=== PATIENT | male | born 1940 | race Caucasian/White ===

== ENCOUNTER 2022-12-14 09:41 | Emergency (ER) | payer MEDICARE, SELFPAY ==
[2022-12-14 10:04] VITALS: BP 204/86; PULSE 77; RESP 16; TEMP 36.3; O2SAT 96; BMI 28.3
--- NOTE | 2022-12-14 10:58 | ED_ITS ---
HPI - General Adult General: Chief complaint: Neuro Symptoms/Deficit Stated complaint: Ringing in ears Time Seen by Provider: 12/14/22 10:31 Source: patient and family Mode of arrival: ambulatory Limitations: no limitations History of Present Illness: Patient is a very nice 82-year-old male who presents to ED today along with his son for concerns of an abnormal sound/humming that he describes inside of his head. Patient states he initially began noticing this sounds a few weeks ago but states over the past week it has gotten significantly worse to the point where it keeps him up at night. He tori cribes the sound as more of a hum and references to sounds of jet airplanes going above his head. No description of ringing. Patient does wear bilateral hearing aids but has so for many years and states he has good follow-up with these. Patient has not started any new medications prior to sensation beginning. He was seen by his PCP who thought it might be secondary to blood pressure as his blood pressure was elevated in their office. He states they adjusted his blood pressure medications but this has not made a difference. Patient denies headache, lightheadedness, dizziness, visual changes. Denies pulsatile tinnitus. 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) and tinnitus; Denies: throat pain, odynophagia, ear or mastoid pain, ear discharge, disequilibrium, nasal discharge, nasal congestion, post nasal drip or sinus pain Card: Denies: chest pain Resp: Denies: dyspnea GI: Denies: abdominal pain Musc: Denies: neck pain, back pain, extremity pain or joint pain Skin/Breast: Denies: rash Neuro: Denies: headache(s), numbness in extremities, weakness in extremities, sensory changes, lack of coordination, difficulty walking, frequent falls, dizziness, vertigo, confusion, behavioral changes, Slurred speech present or difficulty communicating thoughts Physical Exam Const: COMMON NORMALS: no acute distress, average body habitus, patient oriented x3, no limitations, healthy appearing, alert and well nourished GENERAL APPEARANCE: cooperative ORIENTATION/CONSCIOUSNESS: Yes awake, Yes oriented to person, Yes oriented to place and Yes oriented to time HENMT: COMMON NORMALS: normocephalic, atraumatic, hearing grossly normal bilaterally, external ears normal, EAC's normal, TM's normal bilaterally, Normal external nose present, Normal nasal mucous membranes and turbinates present, moist oral mucous membranes and oropharynx normal HEAD & SCALP: normal to inspection, normocephalic and atraumatic FACE & SINUS: normal facial exam and sinuses nontender NOSE: Normal external nose present and Normal nasal mucous membranes and turbinates present GENERAL EAR: other (hearing aids) EXTERNAL EAR: Yes external ears normal EXTERNAL AUDITORY CANAL: EAC's normal TYMPANIC MEMBRANE: TM's normal bilaterally MOUTH: Normal oral and palatal mucosa present, lip normal and tongue normal THROAT: posterior oropharynx normal, tonsils normal and uvula midline Eye: COMMON NORMALS: Equal, round and reactive pupils present, EOMs intact bilaterally and conjunctivae normal CONJUNCTIVA: Yes conjunctivae normal PUPIL: Yes Equal, round and reactive pupils present Neck/C-Spine: COMMON NORMALS: full ROM, no lymphadenopathy, no meningeal signs, no JVD and No carotid bruits GENERAL: Yes normal visual inspection, No anterior neck swelling and No submandibular swelling Resp: COMMON NORMALS: normal respiratory effort and clear to auscultation bilaterally AUSCULTATION: clear to auscultation bilaterally Cardio: COMMON NORMALS: no JVD, regular rate and regular rhythm RATE: regular rate RHYTHM: regular rhythm Extremity: COMMON NORMALS: normal to inspection GENERAL: Yes normal exam except as noted Neuro: SEAN COMA SCALE: document GCS findings Sean coma scale eye opening: Spontaneous Sean coma scale verbal response: Orientated Sean coma scale motor response: Obey commands [place] coma scale total score: 15 COMMON NORMALS: patient oriented x3, CN's II-XII intact bilaterally, moves all extremities, no focal motor deficits, no sensory deficits noted and gait normal SENSORIUM/ORIENTATION: Yes alert, Yes oriented to person, Yes oriented to place and Yes oriented to time MENINGEAL SIGNS: Yes no meningeal signs Skin: COMMON NORMALS: no rashes or lesions noted GENERAL SKIN EXAM: no rashes or lesions noted Course Vital Signs: Vital signs: Vital Signs Temperature 97.3 F L 12/14/22 10:04 Pulse Rate 72 12/14/22 13:56 Respiratory Rate 16 12/14/22 13:56 Blood Pressure 174/67 12/14/22 13:56 Pulse Oximetry 97 12/14/22 13:56 Oxygen Delivery Me thod 12/14/22 10:04 MDM - General Adult Medical Decision Making Possible etiologies for tinnitus is vast and can arise from sensorineural hearling loss, vascular insufficiencies/BEREAVEMENT PROGRAM COORDINATOR anomalies (small vessel disease, HTN, pseudotumor cerebri, vascular malformations, tumor, stroke, MS), ototoxicity from medications, infection, cochlear injury, etc. Patient's labs here are unremarkable. Patient/son very concerned and state that apparently their PCP sent them here for imaging. I spoke to radiology who thought CTA imaging would be the best modality to evaluate for this from an ED standpoint but did state MR imaging down the road may be indicated. CTA was negative. I think at this point I would like patient to follow up with ENT so they can ev aluate patient. If they cannot establish an etiology then maybe neurology might be able to. Return to ED precautions given. Lab Data 12/14/22 11:36 12/14/22 11:36 Radiology Impressions Head/Neck CTA 12/14/22 11:01 IMPRESSION: 1. No evidence of intracranial hemorrhage or mass effect. 2. No significant ICA stenosis bilaterally. 3. No flow-limiting intracranial stenosis. 4. Normal variant absent RIGHT A1 segment. 5. Paranasal sinuses and mastoid air cells well aerated. Laboratory Results WBC 7.8 10^3/uL (4.0-10.0) 12/14/22 11:36 RBC 4.57 10^6/uL (4.1-5.3) 12/14/22 11:36 Hgb 14.4 g/dL (11.7-16.6) 12/14/22 11:36 Hct 44.3 % (42.0-52.0) 12/14/22 11:36 MCV 96.9 fl (80-94) H 12/14/22 11:36 MCH 31.5 pg (28.0-34.0) 12/14/22 11:36 MCHC 32.5 g/dL (30.0-36.0) 12/14/22 11:36 RDW 13.0 % (12.1-15.1) 12/14/22 11:36 Plt Count 276 10^3/cmm (130-400) 12/14/22 11:36 MPV 10.7 fL (7.4-10.4) H 12/14/22 11:36 Neut % (Auto) 70.8 % 12/14/22 11:36 Lymph % (Auto) 18.4 % 12/14/22 11:36 Howard % (Auto) 8.0 % 12/14/22 11:36 Eos % (Auto) 1.5 % 12/14/22 11:36 Baso % (Auto) 0.9 % 12/14/22 11:36 Neut # (Auto) 5.54 10^3/uL (1.8-7.7) 12/14/22 11:36 Lymph # (Auto) 1.4 10^3/uL (0.8-4.8) 12/14/22 11:36 Howard # (Auto) 0.6 10^3/uL (0.2-0.9) 12/14/22 11:36 Eos # (Auto) 0.1 10^3/uL (0.0-0.8) 12/14/22 11:36 Baso # (Auto) 0.1 10^3/uL (0.0-0.1) 12/14/22 11:36 Nucleated RBC % (auto) 0 % 12/14/22 11:36 Nucleated RBCs # 0.0 /100WBC 12/14/22 11:36 Sodium 139 mmol/L (136-145) 12/14/22 11:36 Potassium 4.0 mmol/L (3.5-5.1) 12/14/22 11:36 Chloride 100 mmol/L (98-107) 12/14/22 11:36 Carbon Dioxide 31 mmol/L (22-29) H 12/14/22 11:36 Anion Gap 12.0 (5-19) 12/14/22 11:36 BUN 22 mg/dL (8-23) 12/14/22 11:36 Creatinine 0.9 mg/dL (0.7-1.2) 12/14/22 11:36 GFR Calculation Not Reportable 12/14/22 11:36 Glucose 118 mg/dL (65-115) H 12/14/22 11:36 Calculated Osmolality 292 mOsm/kg (285-295) 12/14/22 11:36 Calcium 9.4 mg/dL (8.5-10.5) 12/14/22 11:36 Total Bilirubin 0.4 mg/dL (0.15-1.2) 12/14/22 11:36 AST 22 U/L (0-40) 12/14/22 11:36 ALT 17 U/L (0-41) 12/14/22 11:36 Alkaline Phosphatase 88 U/L (40-130) 12/14/22 11:36 Total Protein 7.1 g/dL (6.6-8.7) 12/14/22 11:36 Albumin 4.0 g/dL (3.5-5.2) 12/14/22 11:36 Globulin 3.1 g/dL (1.3-4.6) 12/14/22 11:36 Salicylates < 0.3 mg/dL (3-10) L 12/14/22 11:36 Discharge Plan Discharge Patient Disposition: Home Clinical Impression: Tinnitus Qualifiers: Laterality: unspecified laterality Qualified Code(s): H93.19 - Tinnitus, unspecified ear Condition: Stable Prescriptions: No Action lisinopril-hydrochlorothiazide 20-12.5 mg tablet 1 tab PO QAM lisinopril 20 mg tablet 20 mg PO QAM Rx Instructions: TAKES WITH LISINOPRIL/HCTZ Aspir-81 81 mg Tablet,Delayed Release (Dr/Ec) 81 mg PO QAM Discharge Orders: Discharge ED (Routine); Ordered 12/14/22 Ordered By: Nallely Adorno Patient Instructions: Tinnitus, Tinnitus (ED) Activity Restrictions/Additional Instructions: As we discussed case management should contact you shortly to set you up with a follow-up appointment with ENT for further evaluation of patient's tinnitus. Coding Level of Care Code ED Plastic Molder for Vipin Triplett
--- NOTE | 2022-12-14 11:01 | CT_ITS ---
WS: [id number] CTA HEAD AND NECK TECHNIQUE: Contrast enhanced CTA of the head and neck with coronal and sagittal reformatted images an d maximum intensity projection (MIP) images. NASCET criteria utilized. CLINICAL INFORMATION: tinnitus like sensations/sounds COMPARISON: None. DLP: 1034.[address] scans at [facility] use at least one of these dose optimization techniques: automated e xposure control; mA and/or kV adjustment per patient size (includes targeted exams where dose is matc hed to clinical indication); or iterative reconstruction. FINDINGS: No evidence of intracranial hemorrhage or mass effect. Ventricular system and basal cistern s are patent. Normal rosa-white differentiation. Mild small vessel changes with moderate parenchymal volume loss. Vascular calcification. Paranasal sinuses and mastoid air cells well aerated. Normal pos terior nasopharynx. Normal parapharyngeal fat. Lung apices are well aerated. RIGHT: RIGHT common carotid artery is patent. No significant RIGHT ICA stenosis. RIGHT ICA is patent to the skull base. LEFT: LEFT common carotid artery is patent. Mild calcified plaque LEFT carotid bulb extending into th e ICA. LEFT ICA is patent to the skull base. INTRACRANIAL CTA: RIGHT dominant vertebral artery. Both vertebral arteries are patent. Both ICAs are patent at the skul l base. Mild cavernous carotid calcification. Absent RIGHT A1 segment. Normal vascularity to the MICHELLE territory. Normal vascularity to the RIGHT MCA territory. Normal vascularity to the LEFT MCA territor y. Basilar artery is patent. Persistent LEFT BULK MAIL CLERK. Normal vascularity to the BULK MAIL CLERK territory bilatera lly. Moderate spondylitic changes cervical spine. Sclerotic lesion T1 likely benign. CT/CT angio headneck* [id number] IMPRESSION: 1. No evidence of intracranial hemorrhage or mass effect. 2. No significant ICA stenosis bilaterally. 3. No flow-limiting intracranial stenosis. 4. Normal variant absent RIGHT A1 segment. 5. Paranasal sinuses and mastoid air cells well aerated.
[2022-12-14 11:49] LABS: Basophils # 0.1 10^3/uL (0.0-0.1); Basophils % 0.9 %; Eosinophils # 0.1 10^3/uL (0.0-0.8); Eosinophils % 1.5 %; Hematocrit 44.3 % (42.0-52.0); Hemoglobin 14.4 g/dL (11.7-16.6); Lymphocytes # 1.4 10^3/uL (0.8-4.8); Lymphocytes % 18.4 %; Mean Corpuscular HGB Conc 32.5 g/dL (30.0-36.0); Mean Corpuscular Hemoglobin 31.5 pg (28.0-34.0); Mean Corpuscular Volume 96.9 fl (80-94); Mean Platelet Volume 10.7 fL (7.4-10.4); Monocytes # 0.6 10^3/uL (0.2-0.9); Neutrophils # 5.54 10^3/uL (1.8-7.7); Neutrophils % 70.8 %; Nucleated Red Blood Cells % 0 %; Platelet Count 276 10^3/cmm (130-400); Red Blood Count 4.57 10^6/uL (4.1-5.3); White Blood Count 7.8 10^3/uL (4.0-10.0)
[2022-12-14 11:52] VITALS: BP 167/66; PULSE 65; RESP 16; O2SAT 100
[2022-12-14 12:06] LABS: Alanine Aminotransferase 17 U/L (0-41); Alkaline Phosphatase 88 U/L (40-130); Aspartate Amino Transferase 22 U/L (0-40); Blood Urea Nitrogen 22 mg/dL (8-23); Calcium 9.4 mg/dL (8.5-10.5); Carbon Dioxide 31 mmol/L (22-29); Chloride 100 mmol/L (98-107); Globulin 3.1 g/dL (1.3-4.6); Glucose 118 mg/dL (65-115); Osmolality Calculated 292 mOsm/kg (285-295); Sodium 139 mmol/L (136-145); Total Bilirubin 0.4 mg/dL (0.15-1.2); Total Protein 7.1 g/dL (6.6-8.7)
[2022-12-14 12:07] LABS: Salicylate < 0.3 mg/dL (3-10)
[2022-12-14] MEDS: iohexol 350 mg/mL 500 mL Btl (per mL) IV (12:33)
[2022-12-14 13:00] VITALS: BP 155/87; PULSE 65; RESP 16; O2SAT 98
[2022-12-14 13:43] VITALS: BP 174/67; PULSE 67; RESP 18; O2SAT 98
[2022-12-14 13:56] VITALS: BP 174/67; PULSE 72; RESP 16; O2SAT 97
--- NOTE | 2022-12-18 08:31 | DCPLANNER ---
Addendum entered by Jennifer Sanchez 01/02/23 08:32: Patient had a follow up appointment scheduled with ENT - patient did attend appointment. Addendum entered by Jennifer Sanchez 12/28/22 07:42: Patient has a follow up appointment scheduled for Wednesday, December 21, 2022 at 1:[address] Flores at ENT. Clinic will call patient with appointment information. Original Note: garde manager had message to schedule a follow up appointment for patient with ENT. garde manager sent patients information to the front office staff at ENT. Patients information will be printed and reviewed. Clinic will call patient with appointment information.
== END 2022-12-14 13:57 | disposition home or self-care (01) ==
PROVIDERS: Emergency Provider Physician Assistant
DX: H93.19 Tinnitus, unspecified ear (principal); Z79.82 Long term (current) use of aspirin
CPT/HCPCS: 36415; 70496; 70498; 80053; 80307; 85025; 99284; Q9967

== ENCOUNTER → 2022-12-31 12:31 | Outpatient (BNVA) | payer MEDICARE, SELFPAY | PROVIDERS: Referring Provider Physician Assistant; Visit Provider Otolaryngology | DX: H91.93 Unspecified hearing loss, bilateral (principal); H93.13 Tinnitus, bilateral | CPT/HCPCS: 99203 ==